=== PATIENT | male | born 1935 | race Caucasian/White ===

== ENCOUNTER → 2017-01-17 | Outpatient (CLI) | payer MEDICARE | END | disposition home or self-care (01) | LOC: PCVCCLINIC 13:00 | PROVIDERS: ATTEND Internal Medicine Cardiovascular Disease | DX: I48.91 Unspecified atrial fibrillation (principal); R06.09 Other forms of dyspnea; I10 Essential (primary) hypertension; R60.9 Edema, unspecified | CPT/HCPCS: 93005; G0463 ==

== ENCOUNTER → 2017-02-02 | Outpatient (CLI) | payer MEDICARE ==
[~2017-02-02] MED LIST: REGADENOSON 0.4 MG/5 ML DISP.SYRIN. IV ONE
== END | disposition home or self-care (01) ==
LOC: PCVCIMAG 09:00
PROVIDERS: ATTEND Internal Medicine Cardiovascular Disease
DX: Z01.810 Encounter for preprocedural cardiovascular examination (principal); I08.1 Rheumatic disorders of both mitral and tricuspid valves; I48.91 Unspecified atrial fibrillation; I10 Essential (primary) hypertension
CPT/HCPCS: 78452; 93017; 93306; A9500; G0463; J2785

== ENCOUNTER → 2018-02-05 | Outpatient (CLI) | payer MEDICARE | END | disposition home or self-care (01) | LOC: PCVCCLINIC 13:00 | DX: I48.91 Unspecified atrial fibrillation (principal); I10 Essential (primary) hypertension; I42.9 Cardiomyopathy, unspecified; I49.3 Ventricular premature depolarization; Z87.891 Personal history of nicotine dependence; Z79.899 Other long term (current) drug therapy | CPT/HCPCS: 93005; G0463 ==

== ENCOUNTER → 2018-08-14 | Outpatient (CLI) | payer MEDICARE ==
--- NOTE | 2018-08-14 15:05 | PCVCIMAG ---
APPROVED REPORT Study performed: 08/14/2018 15:02:45 EXAM: Comprehensive 2D, Doppler, and color-flow Echocardiogram Patient Location: Echo lab Status: routine BSA: 2.06 HR: 60 bpmBP: 122/76 mmHg Rhythm: NSR w/ PVCs Other Information Study Quality: Adequate Risk Factors: Cardiac Risk Factors: HTN Indications Atrial Fibrillation Cardiomyopathy 2D Dimensions IVSd: 11.39 (7-11mm) LVDd: 42.92 mm PWd: 9.80 (7-11mm)Ascending Ao: 33.29 (22-36mm) LVDs: 32.74 (25-40mm) Left Atrium: 40.00 (27-40mm) Aortic Root: 33.19 mm LV Single Plane 4CH: 46.89 % LV Single Plane 2CH: 54.44 % Biplane EF: 50.5 % Volumes Left Atrial Volume (Systole) Single Plane 4CH: 70.60 mLSingle Plane 2CH: 68.04 mL LA ESV Index: 36.00 mL/m2 Aortic Valve AoV Peak Jaime.: 1.15 m/s AO Peak Gr.: 5.49 mmHgLVOT Max P.89 mmHg LVOT Max V: 0.85 m/s Mitral Valve E/A Ratio: 1.3 MV Decel. Time: 206.57 ms MV E Max Jaime.: 0.48 m/s MV A Jaime.: 0.37 m/s MV PHT: 59.91 ms IVRT: 124.57 ms Pulmonary Valve PV Peak Jaime.: 0.76 m/sPV Peak Gr.: 2.29 mmHg Pulmonary Vein P Vein S: 0.34 m/sP Vein A: 0.31 m/s P Vein D: 0.75 m/sP Vein A Dur.: 159.2 msec P Vein S/D Ratio: 0.45 Tricuspid Valve TR Peak Jaime.: 2.97 m/s TR Peak Gr.: 35.32 mmHg Left Ventricle The left ventricle is normal size. There is normal LV segmental wall motion. There is normal left ventricular wall thickness. Left ventricular systolic function is normal. The left ventricular ejection fraction is within the normal range. LVEF is 55%. Grade II - pseudonormal filling dynamics. Right Ventricle The right ventricle is normal size. The right ventricular systolic function is normal. Atria Left atrium is mildly dilated. Right atrium is moderately dilated. Aortic Valve The aortic valve is normal in structure. Trace aortic regurgitation. There is no aortic valvular stenosis. Mitral Valve The mitral valve leaflets are thickened. Mild anterior mitral valve prolapse. Mild mitral regurgitation. No evidence of mitral valve stenosis. Tricuspid Valve The tricuspid valve is normal in structure. Moderate tricuspid regurgitation with PAP of 42 mmHg. Pulmonic Valve The pulmonary valve is normal in structure. Moderate pulmonic regurgitation. Great Vessels The aortic root is normal in size. Sinus of Valsalva is mildly dilated to 4.0 cm. IVC is normal in size and collapses >50% with inspiration. Pericardium There is no pericardial effusion. There is no pleural effusion. <Conclusion> The left ventricle is normal size. Left ventricular systolic function is normal. Grade II - pseudonormal filling dynamics. The right ventricle is normal size. Left atrium is mildly dilated. Right atrium is moderately dilated. Trace aortic regurgitation. Mild mitral regurgitation. Moderate tricuspid regurgitation with PAP of 42 mmHg.
== END | disposition home or self-care (01) ==
LOC: PCVCIMAG 13:54
PROVIDERS: ATTEND Internal Medicine Cardiovascular Disease
DX: I48.91 Unspecified atrial fibrillation (principal); I10 Essential (primary) hypertension; I42.9 Cardiomyopathy, unspecified; I49.3 Ventricular premature depolarization; I08.1 Rheumatic disorders of both mitral and tricuspid valves; I25.10 Atherosclerotic heart disease of native coronary artery without angina pectoris; Z87.891 Personal history of nicotine dependence
CPT/HCPCS: 93005; 93306; G0463